=== PATIENT | female | born 1965 | race Caucasian/White ===

== ENCOUNTER 2017-09-28 09:58 | Inpatient (IN) | payer OTHER ==
[2017-09-28] VITALS (7 sets, daily range): BP systolic 152–218; BP diastolic 70–113
[~2017-09-28] VITALS: Ht 154.9 cm; Wt 84.0 kg
--- NOTE | ~2017-09-28 | CON ---
[place], [place] REPORT OF CONSULTATION NAME: CLARITA CATHERINE UNIT #: [id number] ROOM: 412 DOCTOR: ELMA GONZALES,JULY BIRTHDATE: [birth year] DOS: 09/29/2017 HISTORY OF PRESENT ILLNESS: The patient is a pleasant 52-year-old female who presented to the ER yesterday with left ear fullness. She states she really has very little pain. It is mainly a sensation of fullness. She denies any difficulty with her hearing. She has had no fevers or chills. She has been taking DayQuil and ibuprofen for a few days. She also had a nonproductive cough, no shortness of breath. No fevers or chills. No nausea, vomiting or diarrhea. No headache, no face pain. Her physical exam showed a ruptured tympanic membrane. She underwent CT of the sinuses and auditory canal that showed extensive soft tissue in the left middle ear cavity with air fluid level noted in left suppurative middle ear infection as well as extensive opacification of the left mastoid cells with no definite bone destruction and widespread and extensive chronic and acute paranasal sinus disease involving all paranasal sinuses. No ENT is available to see the patient. Her admitting blood cultures are sterile. Her max temperature has been 99.8 overnight. She is currently on Unasyn. History is obtained per discussion with the patient and review of the chart. PAST MEDICAL HISTORY: Includes hypertension. Status post partial hysterectomy. SOCIAL HISTORY: She is a smoker with approximately 26-[id number]-ynqo history. Occasional alcohol use, no illicit drug use. FAMILY MEDICAL HISTORY: Father with esophageal and stomach cancer. Mother with dementia and hypertension. ALLERGIES: No known drug allergies. CURRENT MEDICATIONS: Include Lovenox, vitamin D, Unasyn, Zestril, Flonase, DuoNeb, Restoril, Zofran, milk of mag, Dulcolax, [place], and Tylenol. REVIEW OF SYSTEMS: As above in history of present illness. No peripheral edema. No difficulty with urination. Further review of systems is unremarkable. LABORATORY DATA: WBCs were 14.2 on admission down to 11.4 today, platelets 213. BUN 8, creatinine 0.78. UA, no pyuria. PHYSICAL EXAMINATION: VITAL SIGNS: Temperature 99.1, pulse 72, respirations 18, BP 133/85. GENERAL: A 52-year-old female, in no acute distress. HEENT: Normocephalic, no thrush. NECK: No cervical lymphadenopathy. Left tympanic membrane has ruptured. There is small amount of blood as well as some purulence in the canal and debris. LUNGS: Clear to auscultation bilaterally. Respirations even and unlabored. HEART: Regular rhythm. No murmur appreciated. ABDOMEN: Soft, nondistended, nontender. Positive bowel sounds. EXTREMITIES: No edema, deformity or cyanosis. SKIN: Warm, dry, free of rashes. [place], [place] REPORT OF CONSULTATION NAME: CLARITA CATHERINE UNIT #: [id number] ROOM: 412 DOCTOR: ELMA GONZALES BIRTHDATE: [birth year] ASSESSMENT: Left acute otitis media with ruptured tympanic membrane and sinusitis. PLAN: Continue the Unasyn. Case discussed with Dr. Manuel Alvares. JULY JANET WILLS MANUEL ALVARES MD CM:CONSTR:REPORT OF CONSULTATION 46 09/30/17 1329 interface
--- NOTE | ~2017-09-28 | DS ---
[place], [place] DISCHARGE SUMMARY NAME: CLARITA CATHERINE UNIT #: [id number] ROOM: 412 DOCTOR: ELMA GONZALESJULY BIRTHDATE: [birth year] DOS: 09/29/2017 HISTORY OF PRESENT ILLNESS: The patient is a pleasant 52-year-old female who presented to the ER yesterday with left ear fullness. She states she really has very little pain. It is mainly a sensation of fullness. She denies any difficulty with her hearing. She has had no fevers or chills. She has been taking DayQuil and ibuprofen for a few days. She also had a nonproductive cough, no shortness of breath. No fevers or chills. No nausea, vomiting or diarrhea. No headache, no face pain. Her physical exam showed a ruptured tympanic membrane. She underwent CT of the sinuses and auditory canal that showed extensive soft tissue in the left middle ear cavity with air fluid level noted in left suppurative middle ear infection as well as extensive opacification of the left mastoid cells with no definite bone destruction and widespread and extensive chronic and acute paranasal sinus disease involving all paranasal sinuses. No ENT is available to see the patient. Her admitting blood cultures are sterile. Her max temperature has been 99.8 overnight. She is currently on Unasyn. History is obtained per discussion with the patient and review of the chart. PAST MEDICAL HISTORY: Includes hypertension. Status post partial hysterectomy. SOCIAL HISTORY: She is a smoker with approximately 24-[id number]-[id number] history. Occasional alcohol use, no illicit drug use. FAMILY MEDICAL HISTORY: Father with esophageal and stomach cancer. Mother with dementia and hypertension. ALLERGIES: No known drug allergies. CURRENT MEDICATIONS: Include Lovenox, vitamin D, Unasyn, Zestril, Flonase, DuoNeb, Restoril, Zofran, milk of mag, Dulcolax, [place], and Tylenol. REVIEW OF SYSTEMS: As above in history of present illness. No peripheral edema. No difficulty with urination. Further review of systems is unremarkable. LABORATORY DATA: WBCs were 14.2 on admission down to 11.4 today, platelets 213. BUN 8, creatinine 0.78. UA, no pyuria. PHYSICAL EXAMINATION: VITAL SIGNS: Temperature 99.1, pulse 72, respirations 18, BP 133/85. GENERAL: A 52-year-old female, in no acute distress. HEENT: Normocephalic, no thrush. NECK: No cervical lymphadenopathy. Left tympanic membrane has ruptured. There is small amount of blood as well as some purulence in the canal and debris. LUNGS: Clear to auscultation bilaterally. Respirations even and unlabored. HEART: Regular rhythm. No murmur appreciated. ABDOMEN: Soft, nondistended, nontender. Positive bowel sounds. EXTREMITIES: No edema, deformity or cyanosis. SKIN: Warm, dry, free of rashes. [place], [place] DISCHARGE SUMMARY NAME: CLARITA CATHERINE UNIT #: [id number] ROOM: 412 DOCTOR: ELMA GONZALESJULY BIRTHDATE: [birth year] ASSESSMENT: Left acute otitis media with ruptured tympanic membrane and sinusitis. PLAN: Continue the Unasyn. Case discussed with Dr. Manuel Alvares. JULY JANET WILLS MANULE ALVARES MD CM:SIMI [id number] ELMA GONZALES 09/30/17 1330 RASHAD [email or web address]
--- NOTE | ~2017-09-28 | CON ---
[place], [place] REPORT OF CONSULTATION NAME: CLARITA CTAHERINE UNIT #: [id number] ROOM: 412 DOCTOR: GIORGIO OLIVO,MANUEL Delgado BIRTHDATE: [birth year] DOS: ADDENDUM Chart was reviewed. The patient's labs and radiographs examine. Agree with the above plans as described. We will follow the patient up clinically and adjust accordingly. MANUEL ALVARES MD CM:CONSTR:REPORT OF CONSULTATION 25 09/29/17 [id number] interface
[~2017-09-28 09:58] MED LIST: NKHM; NORCO 5-325 TA1 EACH PO; VOLTAREN50 M1 PO
[2017-09-28 10:46] LABS: BILIRUBIN NEGATIVE (NEGATIVE); BLOOD TRACE-INTACT (NEGATIVE); CLARITY CLEAR (CLEAR); COLOR ORANGE (YELLOW); GLUCOSE NEGATIVE (NEGATIVE); KETONE NEGATIVE (NEGATIVE); LEUKO ESTERASE NEGATIVE (NEGATIVE); NITRITE NEGATIVE (NEGATIVE); SPECIFIC GRAVITY <= 1.005 (1.005-1.030); UROBILINOGEN 0.2 E.U./dl (0.2-1.0)
[2017-09-28 10:50] LABS: BASO # 0.1 10*3/uL (0.0-0.1); BASO % 0.4 % (0.0-1.0); EOS # 0.2 10*3/uL (0.0-0.4); EOS % 1.3 % (1.0-4.0); HEMATOCRIT 44.9 % (37.0-47.0); HEMOGLOBIN 14.5 g/dl (12.0-16.0); LYMPH # 3.3 10*3/uL (1.3-4.4); LYMPH % 23.3 % (27.0-41.0); MEAN CELL VOLUME 89.4 fl (81.0-99.0); MEAN CORPUSCULAR HGB 28.9 pg (27.0-31.0); MEAN CORPUSCULAR HGB CONC 32.3 g/dl (33.0-37.0); MEAN PLATELET VOLUME 9.9 fl (9.6-12.3); MONO # 1.2 10*3/uL (0.1-1.0); MONO % 8.2 % (3.0-9.0); NEUT # 9.5 10*3/uL (2.3-7.9); NEUT % 66.6 % (47.0-73.0); PLATELET COUNT AUTOMATED 244 10*3/uL (130-400); RED BLOOD COUNT 5.02 10*6/uL (4.10-5.10); WHITE BLOOD COUNT 14.2 10*3/uL (4.8-10.8)
[2017-09-28 10:59] LABS: BACTERIA TRACE; RBC 0-2 rbc/hpf (0-2)
[2017-09-28 11:04] LABS: ALBUMIN 3.9 gm/dl (3.1-4.5); ALKALINE PHOSPHATASE 112 U/L (45-117); BUN 9 mg/dl (7-24); CHLORIDE 107 mmol/L (98-107); POTASSIUM 3.8 mmol/L (3.5-5.1); SGOT/AST 10 IU/L (3-35); SGPT/ALT 20 U/L (12-78); SODIUM 142 mmol/L (136-145)
[2017-09-29] VITALS: BP 124/73
[2017-09-29 05:54] LABS: BASO % 0.4 % (0.0-1.0); EOS # 0.1 10*3/uL (0.0-0.4); EOS % 1.1 % (1.0-4.0); LYMPH # 3.3 10*3/uL (1.3-4.4); MEAN CELL VOLUME 90.3 fl (81.0-99.0); MEAN CORPUSCULAR HGB 28.7 pg (27.0-31.0); MEAN CORPUSCULAR HGB CONC 31.8 g/dl (33.0-37.0); MEAN PLATELET VOLUME 10.5 fl (9.6-12.3); MONO # 1.1 10*3/uL (0.1-1.0); MONO % 9.2 % (3.0-9.0); NEUT # 6.8 10*3/uL (2.3-7.9); NEUT % 59.9 % (47.0-73.0); PLATELET COUNT AUTOMATED 213 10*3/uL (130-400); RED BLOOD COUNT 4.21 10*6/uL (4.10-5.10); RED CELL DISTRI WIDTH 14.1 % (0-14.5); WHITE BLOOD COUNT 11.4 10*3/uL (4.8-10.8)
[2017-09-29 05:58] LABS: HEMOGLOBIN 12.1 g/dl (12.0-16.0)
[2017-09-29 06:17] LABS: ACT PARTIAL THROMBO TIME 22.7 SECONDS (20.8-31.5)
[2017-09-29 06:30] LABS: BUN 8 mg/dl (7-24); CHLORIDE 113 mmol/L (98-107); POTASSIUM 3.7 mmol/L (3.5-5.1); SODIUM 145 mmol/L (136-145)
[2017-09-29 06:42] LABS: CHOLESTEROL 149 mg/dL (<200); CREATININE 0.78 mg/dL (0.55-1.02); HDL CHOLESTEROL 36 mg/dl (40-60); LDL CHOLESTEROL 94 mg/dL (9-159); TRIGLYCERIDES 95 mg/dl (<150); VLDL CHOLESTEROL 19 mg/dL (6-40)
[2017-09-29 06:47] LABS: VITAMIN D, 25-HYDROXY 16.4 ng/mL (30-100)
[2017-09-29 08:00] VITALS: BP 166/88
[2017-09-29 12:00] VITALS: BP 158/84
[2017-09-29 16:00] VITALS: BP 154/84
[2017-09-29 20:00] VITALS: BP 133/85
[2017-09-30] VITALS: BP 157/81
[2017-09-30 07:15] LABS: BASO % 0.2 % (0.0-1.0); EOS # 0.2 10*3/uL (0.0-0.4); EOS % 1.7 % (1.0-4.0); HEMATOCRIT 39.9 % (37.0-47.0); HEMOGLOBIN 12.7 g/dl (12.0-16.0); LYMPH # 2.6 10*3/uL (1.3-4.4); LYMPH % 27.2 % (27.0-41.0); MEAN CELL VOLUME 90.1 fl (81.0-99.0); MEAN CORPUSCULAR HGB 28.7 pg (27.0-31.0); MEAN CORPUSCULAR HGB CONC 31.8 g/dl (33.0-37.0); MEAN PLATELET VOLUME 10.1 fl (9.6-12.3); MONO # 0.7 10*3/uL (0.1-1.0); MONO % 7.9 % (3.0-9.0); NEUT # 5.9 10*3/uL (2.3-7.9); NEUT % 62.7 % (47.0-73.0); PLATELET COUNT AUTOMATED 251 10*3/uL (130-400); RED BLOOD COUNT 4.43 10*6/uL (4.10-5.10); WHITE BLOOD COUNT 9.4 10*3/uL (4.8-10.8)
[2017-09-30 07:38] LABS: BUN 9 mg/dl (7-24); CHLORIDE 111 mmol/L (98-107); CREATININE 0.84 mg/dL (0.55-1.02); POTASSIUM 3.9 mmol/L (3.5-5.1); SODIUM 145 mmol/L (136-145)
[2017-09-30 08:00] VITALS: BP 130/91
[2017-09-30 12:00] VITALS: BP 134/89
[2017-09-30 16:00] VITALS: BP 174/90
[2017-09-30 20:00] VITALS: BP 134/61
[2017-10-01 00:18] VITALS: BP 146/83
[2017-10-01 08:00] VITALS: BP 148/76
[2017-10-01 12:00] VITALS: BP 152/88
[2017-10-01 16:00] VITALS: BP 151/73
[2017-10-01] MEDS ORDERED: LISINOPRIL10 M1 PO (16:00)
[2017-10-01] MEDS ORDERED: AUGMENTIN 875875 MG PO (16:00)
[2017-10-01] MEDS ORDERED: VITAMIN D-32000 UNIT PO (16:00)
== END 2017-10-01 20:19 | disposition home or self-care (01) | DRG 871 ==
LOC: ED 09:58 → 4E 11:42 → EDHOLD 11:42 → 4E 11:49
PROVIDERS: Internal Medicine; Registered Nurse
DX: A41.9 Sepsis, unspecified organism (principal); J18.9 Pneumonia, unspecified organism; I10 Essential (primary) hypertension; F17.210 Nicotine dependence, cigarettes, uncomplicated; I16.0 Hypertensive urgency; R65.20 Severe sepsis without septic shock; H66.002 Acute suppurative otitis media without spontaneous rupture of ear drum, left ear; J01.90 Acute sinusitis, unspecified; H72.92 Unspecified perforation of tympanic membrane, left ear; Z90.710 Acquired absence of both cervix and uterus; Z82.49 Family history of ischemic heart disease and other diseases of the circulatory system; Z82.0 Family history of epilepsy and other diseases of the nervous system; Z80.0 Family history of malignant neoplasm of digestive organs

== ENCOUNTER → 2017-10-25 | Outpatient (CLI) | payer OTHER ==
[~2017-10-25] MED LIST changes: +AUGMENTIN 875875 MG PO; +LISINOPRIL10 M1 PO; +VITAMIN D-32000 UNIT PO
== END | disposition home or self-care (01) ==
LOC: RESCLI 02:48
DX: Z09 Encounter for follow-up examination after completed treatment for conditions other than malignant neoplasm (principal); Z12.31 Encounter for screening mammogram for malignant neoplasm of breast; Z12.11 Encounter for screening for malignant neoplasm of colon; I10 Essential (primary) hypertension; E55.9 Vitamin D deficiency, unspecified; E66.9 Obesity, unspecified; F17.210 Nicotine dependence, cigarettes, uncomplicated; Z71.6 Tobacco abuse counseling; Z76.89 Persons encountering health services in other specified circumstances

== ENCOUNTER → 2017-11-15 | Outpatient (CLI) | payer OTHER | END | disposition home or self-care (01) | LOC: RESCLI 04:03 | DX: I10 Essential (primary) hypertension (principal); E66.9 Obesity, unspecified; E55.9 Vitamin D deficiency, unspecified; F17.210 Nicotine dependence, cigarettes, uncomplicated; Z71.6 Tobacco abuse counseling; Z90.710 Acquired absence of both cervix and uterus ==

== ENCOUNTER → 2018-02-27 | Outpatient (CLI) | payer OTHER | END | disposition home or self-care (01) | LOC: RESCLI 08:51 | DX: I10 Essential (primary) hypertension (principal); E55.9 Vitamin D deficiency, unspecified; E66.9 Obesity, unspecified; F17.200 Nicotine dependence, unspecified, uncomplicated; Z79.899 Other long term (current) drug therapy ==